=== PATIENT | female | born 1955 | race American Indian/Alaskan Native ===

== ENCOUNTER 2017-04-02 22:14 | Emergency (ER) | payer SELFPAY ==
[2017-04-02] MEDS ORDERED: APRESOLINE ONE (22:25)
[2017-04-02] MEDS: APRESOLINE IV ONE ×2 (22:33→22:35)
[2017-04-02] MEDS ORDERED: APRESOLINE IM ONE (22:34)
[2017-04-02 22:57] LABS: Basophils % (Auto) 0.6 % (0.0-1.8); Eosinophils % (Auto) 2.8 % (0.0-4.3); Hematocrit 43.7 % (30.3-42.9); Hemoglobin 14.4 gm/dl (10.1-14.3); Mean Corpuscular HGB Conc 33 % (30-34); Mean Corpuscular Hemoglobin 27 pg (28-32); Mean Corpuscular Volume 82 fl (79-97); Platelet Count 159 K/mm3 (140-440); Red Cell Distribution Width 14.4 % (13.2-15.2); White Blood Count 5.5 K/mm3 (4.5-11.0)
[2017-04-02 23:10] LABS: Anion Gap 19 mmol/L; BUN/Creatinine Ratio 20; Blood Urea Nitrogen 10 mg/dL (7-17); Carbon Dioxide 28 mmol/L (22-30); Chloride 100.9 mmol/L (98-107); Glucose 133 mg/dL (65-100); Potassium 4.8 mmol/L (3.6-5.0); Sodium 143 mmol/L (137-145)
[2017-04-02 23:44] LABS: Bilirubin,Urine NEG (Negative); Blood,Urine SM (Negative); Ketones,Urine NEG (Negative); Leukocyte Esterase,Urine MOD (Negative); Mucus,Urine FEW /HPF; Nitrite,Urine NEG (Negative); Protein,Urine <15 mg/dL mg/dL (Negative); Urobilinogen,Urine < 2.0 mg/dL (<2.0)
--- NOTE | 2017-04-03 00:18 | Emergency Department Report ---
ED General Adult HPI - General Chief complaint: Dizziness Stated complaint: DIZZINESS, HTN Time Seen by Provider: 04/03/17 00:15 Source: patient Mode of arrival: Ambulatory Limitations: No Limitations - History of Present Illness Initial comments: Patient is a 61-year-old female past medical history of hypertension and old stroke who presents with lightheadedness. Patient states that her lightheadedness occurred while she was standing up. She states that lasted for about an hour and nothing made it better or worse. Patient states that she had similar symptoms before one week ago and it lasted longer this time so she decided to come to the emergency department. Patient denies having any headache or any chest pain. Patient states that she hasn't been on any antihypertensive medications for the last couple years because she cannot afford them. - Related Data Allergies Allergy/AdvReac Type Severity Reaction Status Date / Time No Known Allergies Allergy Verified 04/02/17 22:22 ED Review of Systems ROS: Stated complaint: DIZZINESS, HTN Other details as noted in HPI Constitutional: denies: chills, fever Eyes: denies: eye pain, eye discharge, vision change ENT: denies: ear pain, throat pain Respiratory: denies: cough, shortness of breath, wheezing Cardiovascular: denies: chest pain, palpitations Endocrine: no symptoms reported Gastrointestinal: denies: abdominal pain, nausea, diarrhea Genitourinary: denies: urgency, dysuria, discharge Musculoskeletal: denies: back pain, joint swelling, arthralgia Skin: denies: rash, lesions Neurological: as per HPI, other (lightheadedness). denies: headache, weakness, paresthesias Psychiatric: denies: anxiety, depression Hematological/Lymphatic: denies: easy bleeding, easy bruising ED Past Medical Hx - Past Medical History Previous Medical History?: Yes Hx Hypertension: Yes Hx CVA: Yes - Surgical History Past Surgical History?: No - Social History Smoking Status: Never Smoker Substance Use Type: None ED Physical Exam - General Limitations: No Limitations General appearance: alert, in no apparent distress - Head Head exam: Present: atraumatic, normocephalic - Eye Eye exam: Present: normal appearance - ENT ENT exam: Present: mucous membranes moist - Neck Neck exam: Present: normal inspection - Respiratory Respiratory exam: Present: normal lung sounds bilaterally. Absent: respiratory distress - Cardiovascular Cardiovascular Exam: Present: regular rate, normal rhythm. Absent: systolic murmur, diastolic murmur, rubs, gallop - GI/Abdominal GI/Abdominal exam: Present: soft, normal bowel sounds - Extremities Exam Extremities exam: Present: normal inspection - Back Exam Back exam: Present: normal inspection - Neurological Exam Neurological exam: Present: alert, oriented X3 - Psychiatric Psychiatric exam: Present: normal affect, normal mood - Skin Skin exam: Present: warm, dry, intact, normal color. Absent: rash ED Course Vital Signs 04/02/17 04/03/17 04/03/17 22:22 00:44 00:46 Temperature 98.6 F Pulse Rate 85 Respiratory 26 H 15 Rate Blood Pressure 221/114 O2 Sat by Pulse 98 Oximetry 04/03/17 04/03/17 04/03/17 01:00 01:16 01:30 Temperature Pulse Rate 112 H 98 H 103 H Respiratory 26 H 20 20 Rate Blood Pressure 170/88 170/88 175/94 O2 Sat by Pulse Oximetry 04/03/17 01:45 Temperature Pulse Rate 101 H Respiratory 20 Rate Blood Pressure 166/92 O2 Sat by Pulse Oximetry - Consultations Consultation #1: 04/03/17 02:07 Discussed with neurosurgeon at [facility]. Patient will be transferred to [place] ER for evaluation. Patient's blood pressure needs to be under control at least less than 150. ED Medical Decision Making - Lab Data Result diagrams: 04/02/17 22:37 04/02/17 22:37 Lab Results 04/02/17 04/02/17 04/02/17 Range/Units 22:37 22:37 23:11 WBC 5.5 (4.5-11.0) K/mm3 RBC 5.30 H (3.65-5.03) M/mm3 Hgb 14.4 H (10.1-14.3) gm/dl Hct 43.7 H (30.3-42.9) % MCV 82 (79-97) fl MCH 27 L (28-32) pg MCHC 33 (30-34) % RDW 14.4 (13.2-15.2) % Plt Count 159 (140-440) K/mm3 Lymph % (Auto) 33.1 (13.4-35.0) % [place] % (Auto) 5.5 (0.0-7.3) % Eos % (Auto) 2.8 (0.0-4.3) % Baso % (Auto) 0.6 (0.0-1.8) % Lymph # 1.8 (1.2-5.4) K/mm3 [place] # 0.3 (0.0-0.8) K/mm3 Eos # 0.2 (0.0-0.4) K/mm3 Baso # 0.0 (0.0-0.1) K/mm3 Seg Neutrophils % 58.0 (40.0-70.0) % Seg Neutrophils # 3.2 (1.8-7.7) K/mm3 Sodium 143 (137-145) mmol/L Potassium 4.8 (3.6-5.0) mmol/L Chloride 100.9 (98-107) mmol/L Carbon Dioxide 28 (22-30) mmol/L Anion Gap 19 mmol/L BUN 10 (7-17) mg/dL Creatinine 0.5 L (0.7-1.2) mg/dL Estimated GFR > 60 ml/min BUN/Creatinine Ratio 20 % Glucose 133 H (65-100) mg/dL Calcium 10.0 (8.4-10.2) mg/dL Troponin T < 0.010 (0.00-0.029) ng/mL Urine Color Straw (Yellow) Urine Turbidity Clear (Clear) Urine pH 7.0 (5.0-7.0) Ur Specific [place] 1.004 (1.003-1.030) Urine Protein <15 mg/dl (Negative) mg/dL Urine Glucose (UA) Neg (Negative) mg/dL Urine Ketones Neg (Negative) mg/dL Urine Blood Sm (Negative) Urine Nitrite Neg (Negative) Urine Bilirubin Neg (Negative) Urine Urobilinogen < 2.0 (<2.0) mg/dL Ur Leukocyte Esterase Mod (Negative) Urine WBC (Auto) 14.0 H (0.0-6.0) /HPF Urine RBC (Auto) 3.0 (0.0-6.0) /HPF Urine Mucus Few /HPF 04/03/17 Range/Units 01:18 WBC (4.5-11.0) K/mm3 RBC (3.65-5.03) M/mm3 Hgb (10.1-14.3) gm/dl Hct (30.3-42.9) % MCV (79-97) fl MCH (28-32) pg MCHC (30-34) % RDW (13.2-15.2) % Plt Count (140-440) K/mm3 Lymph % (Auto) (13.4-35.0) % [place] % (Auto) (0.0-7.3) % Eos % (Auto) (0.0-4.3) % Baso % (Auto) (0.0-1.8) % Lymph # (1.2-5.4) K/mm3 [place] # (0.0-0.8) K/mm3 Eos # (0.0-0.4) K/mm3 Baso # (0.0-0.1) K/mm3 Seg Neutrophils % (40.0-70.0) % Seg Neutrophils # (1.8-7.7) K/mm3 Sodium (137-145) mmol/L Potassium (3.6-5.0) mmol/L Chloride (98-107) mmol/L Carbon Dioxide (22-30) mmol/L Anion Gap mmol/L BUN (7-17) mg/dL Creatinine (0.7-1.2) mg/dL Estimated GFR ml/min BUN/Creatinine Ratio % Glucose (65-100) mg/dL Calcium (8.4-10.2) mg/dL Troponin T < 0.010 (0.00-0.029) ng/mL Urine Color (Yellow) Urine Turbidity (Clear) Urine pH (5.0-7.0) Ur Specific [place] (1.003-1.030) Urine Protein (Negative) mg/dL Urine Glucose (UA) (Negative) mg/dL Urine Ketones (Negative) mg/dL Urine Blood (Negative) Urine Nitrite (Negative) Urine Bilirubin (Negative) Urine Urobilinogen (<2.0) mg/dL Ur Leukocyte Esterase (Negative) Urine WBC (Auto) (0.0-6.0) /HPF Urine RBC (Auto) (0.0-6.0) /HPF Urine Mucus /HPF - EKG Data -: EKG Interpreted by [facility] - EKG Data 04/03/17 02:08 EKG shows sinus tachycardia at 102 with LVH no axis deviation no T wave inversions no signs of ST segment elevation. - Radiology Data Radiology results: report reviewed, image reviewed CT brain: Shows 8 x 6 mm hyperdensity at left [place] likely representing a cerebral aneurysm. - Medical Decision Making Chief medical diagnosis: Subdural bleed Differential multiple diagnosis: Cerebral aneurysm, Htn emergency electrolyte abnormality, arrhythmia I will get CBC, CMP, CT head, troponin, IV antihypertensives Patient's CT head is concerning for a cerebral aneurysm patient's blood pressure is 160/81 after repeated IV doses of labetalol and hydralazine. Discussed with Dr. Prabhakar Neurosurgeon at [place]. Patient will be transferred from ER to ER for neurosurgery evaluation. Discussed plan with patient she agrees with plan. Critical care attestation.: If time is entered above; I have spent that time in minutes in the direct care of this critically ill patient, excluding procedure time. ED Disposition Clinical Impression: Hypertensive emergency, Cerebral aneurysm, Lightheadedness Disposition: [id number] ANOTHER TYPE HLTHCARE Is pt being admited?: No Does the pt Need Aspirin: No Condition: Stable Instructions: Hypertension (ED) Referrals: PRIMARY CARE, [Primary Care Provider] - 3-5 Days
--- NOTE | 2017-04-03 01:11 | Cat Scan Report ---
FINAL REPORT EXAM: CT HEAD/BRAIN W/O CONTRAST. HISTORY: Dizziness. History of prior CVA. TECHNIQUE: Unenhanced axial CT images of the brain were obtained. No prior studies are available for comparison. FINDINGS: The cortical sulci and ventricles are within normal limits for patient's age. There are moderate patchy areas of low-attenuation in the periventricular and subcortical white matter, nonspecific but in keeping with chronic small vessel ischemic disease. There are more focal areas of low-attenuation in the periventricular white matter adjacent to the upper aspect of the anterior left lateral ventricle, and also asymmetric region of low attenuation in the subcortical white matter of the left parietal lobe. These may be related to patient's reported prior stroke. The [place]-white differentiation is maintained. There is no evidence of acute transcortical infarction. There is an 8 x 6 mm rounded hyperdensity in the left skullbase, which appears contiguous with the [place], and likely represents aneurysm in the region of the left posterior communicating artery. There is no extra-axial fluid collection, mass, mass effect, midline shift, hydrocephalus, or acute intracranial hemorrhage. The visualized paranasal sinuses and mastoid air cells are clear. There is no skull fracture or other osseous abnormality. The visualized orbits and globes are grossly unremarkable. These findings were discussed with Dr. Frazier at time of interpretation 1:05 a.m. EDT 04/03/2017. IMPRESSION: 1. Generalized volume loss and probable chronic small vessel ischemic disease, as described. 2. 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 Further characterization with MR/CT angiogram is suggested. 3. No acute intracranial hemorrhage.
[2017-04-03] MEDS ORDERED: NORMODYNE IV ONE (01:12)
[2017-04-03 04:37] VITALS: BP 183/133
== END 2017-04-03 03:11 | disposition other institution (70) ==
LOC: ED 22:14
DX: I10 Essential (primary) hypertension (principal); I67.1 Cerebral aneurysm, nonruptured; Z86.73 Personal history of transient ischemic attack (TIA), and cerebral infarction without residual deficits
CPT/HCPCS: 36415; 70450; 80048; 81001; 84484; 85025; 93005; 93010; 96372; 96374; 99285; J0360

== ENCOUNTER 2017-11-30 11:12 | Outpatient (CLI) | payer MEDICAID ==
[2017-11-30 11:42] LABS: Hematocrit 38.4 % (30.3-42.9); Mean Corpuscular HGB Conc 34 % (30-34); Mean Corpuscular Hemoglobin 28 pg (28-32); Mean Corpuscular Volume 82 fl (79-97); Platelet Count 127 K/mm3 (140-440); Red Blood Count 4.67 M/mm3 (3.65-5.03); Red Cell Distribution Width 14.3 % (13.2-15.2)
[2017-11-30 11:53] LABS: INR 0.93 (0.87-1.13)
[2017-11-30 12:12] LABS: BUN/Creatinine Ratio 36; Blood Urea Nitrogen 18 mg/dL (7-17); Calcium 9.2 mg/dL (8.4-10.2); Hemolysis Index 3
== END 2017-11-30 11:13 | disposition home or self-care (01) ==
LOC: LAB 11:12
DX: I72.9 Aneurysm of unspecified site (principal); Z87.891 Personal history of nicotine dependence
CPT/HCPCS: 36415; 80048; 85027; 85610